=== PATIENT | male | born 1995 | race Caucasian/White ===

== ENCOUNTER 2019-08-03 16:37 | Emergency (ER) | payer OTHER ==
[~2019-08-03] VITALS: Ht 185.4 cm; Wt 98.0 kg
[~2019-08-03 16:37] MED LIST: NO HOME MEDS
[2019-08-03 16:44] VITALS: BP 118/78
== END 2019-08-03 17:15 | disposition home or self-care (01) ==
LOC: ER 16:37
DX: Z77.21 Contact with and (suspected) exposure to potentially hazardous body fluids (principal); Z98.890 Other specified postprocedural states; Z88.0 Allergy status to penicillin
CPT/HCPCS: 99281

== ENCOUNTER → 2019-10-07 | Emergency (ER) | payer SELFPAY ==
[~2019-10-07] VITALS: Ht 182.9 cm; Wt 102.3 kg
[2019-10-07 17:40] VITALS: BP 135/73
== END | disposition home or self-care (01) ==
LOC: ER 17:07
DX: Z20.828 Contact with and (suspected) exposure to other viral communicable diseases (principal); R50.9 Fever, unspecified; R05 Cough; R11.2 Nausea with vomiting, unspecified
CPT/HCPCS: 36415; 99283; U0003

== ENCOUNTER 2020-03-19 19:06 | Emergency (ER) | payer BC, OTHER ==
[~2020-03-19] VITALS: Ht 182.9 cm; Wt 102.3 kg
[2020-03-19] MEDS ORDERED: ondansetron/PF 4mg/2ml inj IV ONE (19:25)
[2020-03-19 19:27] LABS: BASOPHILS % (AUTO) 0.5 % (0-1); EOSINOPHILS # (AUTO) 0.2 X10'3 (0-0.9); HEMOGLOBIN 15.4 g/dl (14.0-17.9); LYMPHOCYTES # (AUTO) 3.3 X10'3 (1.1-4.8); LYMPHOCYTES % (AUTO) 35.7 % (21-51); MEAN CORPUSCULAR HGB CONC 34.3 g/dL (33.0-36.5); MEAN CORPUSCULAR VOLUME 84.5 FL (78-98); MEAN PLATELET VOLUME 10.5 FL (7.4-10.4); MONOCYTES # (AUTO) 0.8 X10'3 (0-0.9); MONOCYTES % (AUTO) 8.9 % (2-12); NEUTROPHILS # (AUTO) 4.9 X10'3 (1.8-7.7); NEUTROPHILS % (AUTO) 52.9 % (42-75); PLATELET COUNT 238 X10'3 (140-440); RED BLOOD COUNT 5.32 X10'6 (4.70-6.10); RED CELL DISTRIBUTION WIDTH 13.9 % (11.5-14.5); WHITE BLOOD COUNT 9.3 X10'3 (4.5-11.0)
[2020-03-19] MEDS ORDERED: ketorolac tromethamine 15mg/ml inj. IV ONE (19:35)
[2020-03-19] MEDS ORDERED: ketorolac trometh. 30mg/ml inj. IV ONE (19:35)
[2020-03-19 19:43] LABS: CLARITY,URINE CLEAR (Clear); COLOR,URINE YELLOW (Yellow); GLUCOSE, URINE NEGATIVE (Neg); KETONES,URINE NEGATIVE (Neg); LEUKOCYTE ESTERASE ,URINE NEGATIVE (Neg); NITRITES, URINE NEGATIVE (Neg); OCCULT BLOOD,URINE NEGATIVE (Neg); PROTEIN,URINE NEGATIVE (Neg)
[2020-03-19 19:45] LABS: ALANINE AMINOTRANSFERASE 54 U/L (12-78); ALBUMIN 4.5 G/DL (3.4-5.0); ALBUMIN/GLOBULIN RATIO 1.2 (1.1-1.5); ALKALINE PHOSPHATASE 64 IU/L (46-116); ANION GAP 10 (8-16); ASPARTATE AMINO TRANSFERASE 27 U/L (10-37); BILIRUBIN,TOTAL 0.7 MG/DL (0.1-1.0); BLOOD UREA NITROGEN 12 MG/DL (7-18); BUN/CREATININE RATIO 13.8 (5.4-32.0); CALCIUM 9.5 MG/DL (8.5-10.1); CHLORIDE 105 MMOL/L (99-107); CREATININE 0.87 MG/DL (0.60-1.10); GLUCOSE 98 MG/DL (70-104); LIPASE 133 U/L (73-393); POTASSIUM 4.1 MMOL/L (3.5-5.1); SODIUM 141 MMOL/L (135-145); TOTAL CARBON DIOXIDE 26.3 MMOL/L (24-32); TOTAL PROTEIN 8.3 G/DL (6.4-8.2); eGFR > 90 ML/MIN
[2020-03-19 19:48] LABS: UA COLLECTION TYPE VOIDED
[2020-03-19] MEDS ORDERED: BISA-78 PO (20:10)
[2020-03-19 20:36] VITALS: BP 124/81
[2020-03-19 20:43] LABS: LARGE PLATELETS MODERATE; PLATELET ESTIMATE NORMAL
== END 2020-03-19 20:38 | disposition home or self-care (01) ==
LOC: ER 19:06
DX: R10.31 Right lower quadrant pain (principal); Z88.0 Allergy status to penicillin; Z79.899 Other long term (current) drug therapy
CPT/HCPCS: 36415; 74176; 80053; 81003; 83690; 85008; 85025; 96374; 96375; 99284; J1885; J2405; 96372

== ENCOUNTER 2020-08-30 16:41 | Emergency (ER) | payer OTHER ==
[~2020-08-30] VITALS: Ht 182.9 cm; Wt 109.1 kg
[~2020-08-30 16:41] MED LIST changes: +BISA-78 PO
[2020-08-30 16:45] VITALS: BP 127/84
[2020-08-30] MEDS ORDERED: acetaminophen 325mg tablet PO ONE (17:15)
== END 2020-08-30 18:28 | disposition home or self-care (01) ==
LOC: OCC HEALTH 16:41
DX: M25.511 Pain in right shoulder (principal); Z98.890 Other specified postprocedural states; Z88.0 Allergy status to penicillin; Z79.899 Other long term (current) drug therapy
CPT/HCPCS: 73030; 99283

== ENCOUNTER 2021-02-13 11:44 | Emergency (ER) | payer BC, OTHER ==
[~2021-02-13] VITALS: Ht 182.9 cm; Wt 109.1 kg
[2021-02-13 12:19] VITALS: BP 164/135
[2021-02-13] MEDS ORDERED: ketorolac tromethamine 15mg/ml inj. IM ONE (12:25)
[2021-02-13] MEDS ORDERED: IBUP-1984 PO (13:07)
== END 2021-02-13 13:25 | disposition home or self-care (01) ==
LOC: ER 11:45
DX: M25.562 Pain in left knee (principal); Z98.890 Other specified postprocedural states; Z88.0 Allergy status to penicillin; Z79.899 Other long term (current) drug therapy
CPT/HCPCS: 29505; 73564; 96372; 99284; J1885

== ENCOUNTER 2021-05-10 19:38 | Emergency (ER) | payer BC, OTHER ==
[~2021-05-10] VITALS: Ht 180.3 cm; Wt 103.6 kg
[2021-05-10 20:00] VITALS: BP 143/99
== END 2021-05-10 22:01 | disposition home or self-care (01) ==
LOC: ER 19:38
DX: M79.644 Pain in right finger(s) (principal); Z88.0 Allergy status to penicillin; Z79.899 Other long term (current) drug therapy; W23.0XXA Caught, crushed, jammed, or pinched between moving objects, initial encounter; Y93.89 Activity, other specified; Y92.89 Other specified places as the place of occurrence of the external cause; Y99.8 Other external cause status
CPT/HCPCS: 73140; 99283

== ENCOUNTER 2021-10-02 11:34 | Emergency (ER) | payer BC, OTHER ==
[~2021-10-02] VITALS: Ht 182.9 cm; Wt 106.8 kg
[2021-10-02 11:37] VITALS: BP 162/95
[2021-10-02] MEDS ORDERED: ketorolac tromethamine 15mg/ml inj. IM ONE (13:00)
== END 2021-10-02 13:19 | disposition home or self-care (01) ==
LOC: ER 11:34
DX: M25.531 Pain in right wrist (principal); Z98.890 Other specified postprocedural states; Z88.0 Allergy status to penicillin; Z79.899 Other long term (current) drug therapy
CPT/HCPCS: 29125; 73110; 96372; 99283; J1885; L3908

== ENCOUNTER 2023-01-08 08:46 | Emergency (ER) | payer BC, MEDICAID ==
[~2023-01-08] VITALS: Ht 180.3 cm; Wt 120.0 kg
[2023-01-08 08:53] VITALS: BP 152/104; PULSE 84; RESP 18; TEMP 97.4; O2SAT 97
[2023-01-08 09:10] LABS: BASOPHILS % (AUTO) 0.5 % (0-1); EOSINOPHILS # (AUTO) 0.2 X10'3 (0-0.9); EOSINOPHILS % (AUTO) 2.6 % (0-6); HEMATOCRIT 46.5 % (42.0-52.0); HEMOGLOBIN 15.7 g/dl (14.0-17.9); LYMPHOCYTES # (AUTO) 3.5 X10'3 (1.1-4.8); LYMPHOCYTES % (AUTO) 40.1 % (21-51); MEAN CORPUSCULAR HEMOGLOBIN 28.4 PG (27.0-31.0); MEAN CORPUSCULAR HGB CONC 33.9 g/dL (33.0-36.5); MEAN CORPUSCULAR VOLUME 83.9 FL (78-98); MEAN PLATELET VOLUME 10.6 FL (7.4-10.4); MONOCYTES # (AUTO) 0.8 X10'3 (0-0.9); MONOCYTES % (AUTO) 9.2 % (2-12); NEUTROPHILS # (AUTO) 4.2 X10'3 (1.8-7.7); NEUTROPHILS % (AUTO) 47.6 % (42-75); PLATELET COUNT 246 X10'3 (140-440); RED BLOOD COUNT 5.54 X10'6 (4.70-6.10); RED CELL DISTRIBUTION WIDTH 13.6 % (11.5-14.5); WHITE BLOOD COUNT 8.8 X10'3 (4.5-11.0)
[2023-01-08 09:33] LABS: ANION GAP 8 (8-16); BLOOD UREA NITROGEN 11 MG/DL (7-18); BUN/CREATININE RATIO 11.7 (10.0-20.0); CHLORIDE 103 MMOL/L (99-107); CREATININE 0.94 MG/DL (0.60-1.10); GLUCOSE 136 MG/DL (70-104); POTASSIUM 3.2 MMOL/L (3.5-5.1); SODIUM 140 MMOL/L (135-145); TOTAL CARBON DIOXIDE 28.7 MMOL/L (24-32)
[2023-01-08 09:34] LABS: ALANINE AMINOTRANSFERASE 85 U/L (12-78); ALBUMIN 4.3 G/DL (3.4-5.0); ALKALINE PHOSPHATASE 67 IU/L (46-116); ASPARTATE AMINO TRANSFERASE 22 U/L (10-37); BILIRUBIN,TOTAL 0.7 MG/DL (0.1-1.0); CALCIUM 9.9 MG/DL (8.5-10.1); PRO BRAIN NATRIURETIC PEPTIDE < 30 PG/ML (0-125); TOTAL PROTEIN 8.4 G/DL (6.4-8.2); eCRCL 128 ML/MIN; eGFR > 90 ML/MIN
== END 2023-01-08 10:17 | disposition home or self-care (01) ==
LOC: ER 08:46
DX: R07.89 Other chest pain (principal); Z88.0 Allergy status to penicillin; Z79.899 Other long term (current) drug therapy
CPT/HCPCS: 36415; 71045; 80053; 83880; 84484; 85025; 93005; 99285